=== PATIENT | male | born 1990 | race Caucasian/White ===

== ENCOUNTER 2017-01-28 22:17 | Emergency (ER) | payer SELFPAY ==
[2017-01-28] MEDS ORDERED: Lidocaine 1% 20 ML MDV INJECT ONE (22:37)
--- NOTE | 2017-01-28 22:38 | EDM.PDOC ---
ED HPI GENERAL MEDICAL PROBLEM - General Chief Complaint: Laceration Stated Complaint: PT HURT LT HAND Time Seen by Provider: 01/28/17 22:38 Source of Information: Reports: Patient - History of Present Illness INITIAL COMMENTS - FREE TEXT/NARRATIVE: HISTORY AND PHYSICAL: History of present illness: [Patient presents with laceration to left thumb, he was at work tonight using a "rosenda Rench "it spun back striking his thumb near the distal phalanx he has a 1.5 cm linear laceration otherwise neurovascularly intact unaffected above the wrist no fever nausea vomiting chills sweats no other injury per patient ] Review of systems: As per history of present illness and below otherwise all systems reviewed and negative. Past medical history: As per history of present illness and as reviewed below otherwise noncontributory. Surgical history: As per history of present illness and as reviewed below otherwise noncontributory. Social history: No reported history of drug or alcohol abuse. Family history: As per history of present illness and as reviewed below otherwise noncontributory. Physical exam: HEENT: Atraumatic, normocephalic, pupils reactive, negative for conjunctival pallor or scleral icterus, mucous membranes moist, throat clear, neck supple, nontender, trachea midline. Lungs: Clear to auscultation, breath sounds equal bilaterally, chest nontender. Heart: S1S2, regular, negative for clicks, rubs, or JVD. Abdomen: Soft, nondistended, nontender. Negative for masses or hepatosplenomegaly. Negative for costovertebral tenderness. Pelvis: Stable nontender. Genitourinary: Deferred. Rectal: Deferred. Extremities: Atraumatic, negative for cords or calf pain. Neurovascular unremarkable. Neuro: Awake, alert, oriented. Cranial nerves II through XII unremarkable. Cerebellum unremarkable. Motor and sensory unremarkable throughout. Exam nonfocal. Diagnostics: X-ray left thumb plain film Therapeutics: []Tetanus status up-to-date 3 years prior per patient Lidocaine Wound cleansed and explored Standard wound care instruction Bacitracin Telfa tube dressing Splint for comfort and protection Impression: []Laceration Definitive disposition and diagnosis as appropriate pending reevaluation and review of above. Left 1-Thumb Pain Score (Numeric/FACES): 2 - Related Data Allergies Allergy/AdvReac Type Severity Reaction Status Date / Time No Known Allergies Allergy Verified 01/28/17 22:27 Home Meds: Home Meds . [No Known Home Meds] 01/28/17 [History] Past Medical History - Past Health History Medical/Surgical History: Denies Medical/Surgical History - Infectious Disease History Infectious Disease History: Reports: Chicken Pox Social & Family History - Tobacco Use Smoking Status *Q: Never Smoker Second Hand Smoke Exposure: No - Caffeine Use Caffeine Use: Reports: Coffee, Energy Drinks, Tea - Recreational Drug Use Recreational Drug Use: Yes Drug Use in Last 12 Months: Yes Recreational Drug Type: Reports: Marijuana/Hashish, Other (see below) Other Recreational Drug Type: adderall Recreational Drug Use Frequency: Not Used In Over 6 Months ED ROS GENERAL - Review of Systems Review Of Systems: ROS reveals no pertinent complaints other than HPI. ED EXAM, SKIN/RASH Exam: See Below Course - Vital Signs Last Recorded V/S: Last Vital Signs Temp 97.8 F 01/28/17 22:23 Pulse 77 01/28/17 22:23 Resp 12 01/28/17 22:23 BP 92/58 L 01/28/17 22:23 Pulse Ox 98 01/28/17 22:23 - Orders/Labs/Meds Orders: Active Orders 24 hr Category Date Time Status Fingers Thumb Lt FA [CR] Stat Exams 01/28/17 22:55 Taken Meds: Medications Discontinued Medications Generic Name Dose Route Start Last Admin Trade Name Tuan PRN Reason Stop Dose Admin Lidocaine HCl 20 ml 01/28/17 22:37 01/28/17 22:42 Xylocaine 1% INJECT 01/28/17 22:38 20 ml ONETIME ONE Administration Departure - Departure Time of Disposition: 23:20 Disposition: Home, Self-Care 01 Condition: Good Clinical Impression: Laceration - Discharge Information Referrals: PCP,None [Primary Care Provider] - Forms: ED Department Discharge Additional Instructions: Standard wound care instructions Keep wound clean and dry for 48 hours Return if redness warmth or pus drainage should this develop Sutures out in 10 days Bacitracin Telfa tube dressing splint for comfort and protection Return to ER or primary care for suture removal, your employer may request that you follow-up with occupational health this would be acceptable as well The following information is given to patients seen in the emergency department who are being discharged to home. This information is to outline your options for follow-up care. We provide all patients seen in our emergency department with a follow-up referral. The need for follow-up, as well as the timing and circumstances, are variable depending upon the specifics of your emergency department visit. If you don't have a primary care physician on staff, we will provide you with a referral. We always advise you to contact your personal physician following an emergency department visit to inform them of the circumstance of the visit and for follow-up with them and/or the need for any referrals to a consulting specialist. The emergency department will also refer you to a specialist when appropriate. This referral assures that you have the opportunity for follow-up care with a specialist. All of these measure are taken in an effort to provide you with optimal care, which includes your follow-up. Under all circumstances we always encourage you to contact your private physician who remains a resource for coordinating your care. When calling for follow-up care, please make the office aware that this follow-up is from your recent emergency room visit. If for any reason you are refused follow-up, please contact the [facility] emergency department at and asked to speak to the emergency department charge nurse. - My Orders Last 24 Hours: My Active Orders 01/28/17 22:55 Fingers Thumb Lt FA [CR] Stat - Assessment/Plan Last 24 Hours: My Active Orders 01/28/17 22:55 Fingers Thumb Lt FA [CR] Stat
[2017-01-28] MEDS ORDERED: Bacitracin Oint 1 GM U/D Packet ONE (23:37)
--- NOTE | 2017-01-30 15:13 | CR ---
EXAM DATE: 01/28/17 PATIENT'S AGE: 26 Patient: CAITLIN LEVY Facility: [place], [place] Site . Site : 1990 Study: XRay Extremity Left Thumb [id number]/2/2017 11:12:26 PM Ordering Physician: Prince Steele Final Report: INDICATION: Thumb caught in wrench. Lateral laceration. TECHNIQUE: Left thumb, three views. COMPARISON: None FINDINGS: Bones: Alignment is normal. No acute fractures or aggressive bone lesions are identified. Joint spaces: The metacarpophalangeal and interphalangeal joints are normal in appearance. Soft tissues: Mild soft tissue dorsal margin of 1st IP joint. No radiopaque soft tissue foreign body. IMPRESSION: 1. Left thumb, no acute fracture or dislocation. Mild degree of IP joint soft tissue swelling. Dictated by Broderick Mendoza MD @ 01/28/2017 11:44:06 PM Dictated by: Broderick Mendoza MD @ 01/28/2017 23:44:10 (Electronic Signature) Report Signed by Proxy. [facility]
== END 2017-01-28 23:45 | disposition home or self-care (01) ==
LOC: MW.ED 22:17
DX: S61.012A Laceration without foreign body of left thumb without damage to nail, initial encounter (principal); W26.8XXA Contact with other sharp object(s), not elsewhere classified, initial encounter; Y99.0 Civilian activity done for income or pay
CPT/HCPCS: 73140-26-FA; 73140-FA; 99283

== ENCOUNTER 2017-02-14 20:19 | Emergency (ER) | payer SELFPAY | END 2017-02-14 20:33 | disposition left against medical advice (07) | LOC: MW.ED 20:19 | DX: Z53.21 Procedure and treatment not carried out due to patient leaving prior to being seen by health care provider (principal) | CPT/HCPCS: 99281 ==

== ENCOUNTER 2017-07-05 10:12 | Emergency (ER) | payer SELFPAY ==
--- NOTE | 2017-07-05 10:27 | EDM.PDOC ---
ED HPI GENERAL MEDICAL PROBLEM - General Chief Complaint: Abdominal Pain Stated Complaint: ABDOMINAL PAIN Time Seen by Provider: 07/05/17 10:27 - History of Present Illness INITIAL COMMENTS - FREE TEXT/NARRATIVE: HISTORY AND PHYSICAL: []26-year-old male presenting with right sided abdominal pain History of Present Illness: []Pain is described as a burning at this point a -07/06 Patient states the burning started about June he was seen in the clinic by Haylee Mar NP on the July 04, 2017. He was started on sulfate and Prilosec. Patient does chew tobacco. Review of Systems: As per history of present illness and below otherwise all systems reviewed and negative. Past medical history: As per history of present illness and as reviewed below otherwise noncontributory. Surgical history: As per history of present illness and as reviewed below otherwise noncontributory. Social history: No reported history of drug or alcohol abuse. Family history: As per history of present illness and as reviewed below otherwise noncontributory. Physical exam: HEENT: Atraumatic, normocehpalic, pupils reactive, negative for conjunctival pallor or scleral icterus, mucous membranes moist, throat clear, neck supple, nontender, trachea midline. Lungs: Clear to auscultation, breath sounds equal bilaterally, chest non tender. Heart: S1S2, regular, negative for clicks, rubs, or JVD. Abdomen: Soft, nondistended, nontender. Negative for masses or hepatossplenmegaly. Negative for costovertebral tenderness. Pelvis: Stable nontender. Genitourinary: Deferred. Rectal: Deferred Extremities: Atraumatic, negative for cords or calf pain. Neurovascular unremarkable. Neuro: Awake, alert, oriented. Cranial nerves II through XII unremarkable. Cerebellum unremarkable. Motor and sensory unremarkable throughout. Exam nonfocal. Discussed with the patient and significant other the negative tests that have been completed Patient received relief with the GI cocktail. Reviewed the lab work from 2 days ago. Recommended that patient follow up with local surgeon for possible EGD. To continue with his current medication Diagnostics: []EKG, ultrasound abdomen limited Therapeutics: []GI Cocktail. Impression: []Acute gastritis Plan: []Referred to Dr. Olson Continue with your current medications of Carafate and the second Definitive disposition and diagnosis as appropriate pending reevaluation and review of above. Duration: Week(s):, Getting Worse Location: Reports: Abdomen abdomen Pain Score (Numeric/FACES): 5 - Related Data Allergies Allergy/AdvReac Type Severity Reaction Status Date / Time No Known Allergies Allergy Verified 07/05/17 10:21 Home Meds: Home Meds Omeprazole Magnesium [Prilosec Otc] 40 mg PO DAILY 07/05/17 [History] Sucralfate [Carafate] 1 tab PO QID 07/05/17 [History] Past Medical History - Past Health History Medical/Surgical History: Denies Medical/Surgical History - Infectious Disease History Infectious Disease History: Reports: Chicken Pox Social & Family History - Family History Family Medical History: Noncontributory - Tobacco Use Smoking Status *Q: Never Smoker - Caffeine Use Caffeine Use: Reports: Coffee, Energy Drinks, Soda, Tea - Recreational Drug Use Recreational Drug Use: No ED ROS GENERAL - Review of Systems Review Of Systems: ROS reveals no pertinent complaints other than HPI. ED EXAM, GI/ABD - Physical Exam Exam: See Below (see dictation) EKG INTERPRETATION EKG Date: 07/05/17 Rhythm: NSR Comparison: NA - No Prior EKG Course - Vital Signs Last Recorded V/S: Last Vital Signs Temp 36.3 C 07/05/17 10:18 Pulse 63 07/05/17 10:18 Resp 18 07/05/17 10:18 BP 121/57 L 07/05/17 10:18 Pulse Ox 99 07/05/17 10:18 - Orders/Labs/Meds Orders: Active Orders 24 hr Category Date Time Status EKG Documentation Completion [RC] STAT Care 07/05/17 11:46 Active Fecal Occult Blood Collection [RC] ASDIRECTED Care 07/05/17 11:00 Active Meds: Medications Discontinued Medications Generic Name Dose Route Start Last Admin Trade Name Freq PRN Reason Stop Dose Admin Al Hydroxide/Mg Hydroxide 15 0 ml 07/05/17 10:30 07/05/17 10:50 ml/ Metoclopramide HCl 5 mg/ PO 07/05/17 10:31 1 each Lidocaine HCl 5 ml ONETIME ONE Administration Departure - Departure Time of Disposition: 12:32 Disposition: Home, Self-Care 01 Condition: Good Clinical Impression: Gastroenteritis Gastritis Qualifiers: Gastritis type: unspecified gastritis Chronicity: acute Gastritis bleeding: without bleeding Qualified Code(s): K29.00 - Acute gastritis without bleeding - Discharge Information Instructions: Gastritis, Adult, [id number] Referrals: PCP,None [Primary Care Provider] - Paris Olson MD [Physician] - Forms: ED Department Discharge Additional Instructions: The following information is given to patients seen in the emergency department who are being discharged to home. This information is to outline your options for follow-up care. We provide all patients seen in our emergency department with a follow-up referral. The need for follow-up, as well as the timing and circumstances, are variable depending upon the specifics of your emergency department visit. If you don't have a primary care physician on staff, we will provide you with a referral. We always advise you to contact your personal physician following an emergency department visit to inform them of the circumstance of the visit and for follow-up with them and/or the need for any referrals to a consulting specialist. The emergency department will also refer you to a specialist when appropriate. This referral assures that you have the opportunity for followup care with a specialist. All of these measure are taken in an effort to provide you with optimal care, which includes your followup. Under all circumstances we always encourage you to contact your private physician who remains a resource for coordinating your care. When calling for followup care, please make the office aware that this follow-up is from your recent emergency room visit. If for any reason you are refused follow-up, please contact the [facility] emergency department at and asked to speak to the emergency department charge nurse. Please call the clinic for an appointment with Dr. Paris Olson [facility] - [facility] Professional Building [address] [place] [address], [address] [place] [address] Continue with your current medications - My Orders Last 24 Hours: My Active Orders 07/05/17 11:00 Fecal Occult Blood Collection [RC] ASDIRECTED 07/05/17 11:46 EKG Documentation Completion [RC] STAT - Assessment/Plan Last 24 Hours: My Active Orders 07/05/17 11:00 Fecal Occult Blood Collection [RC] ASDIRECTED 07/05/17 11:46 EKG Documentation Completion [RC] STAT
[2017-07-05] MEDS ORDERED: Alum Hydrox/Mag Hydrox/Simeth 15 ML, Metoclopramide 5 MG, Lidocaine 2% 5 ML PO ONE ×3 (10:30)
--- NOTE | 2017-07-05 12:07 | US ---
EXAMINATION: Right upper quadrant ultrasound HISTORY: Pain COMPARISON: None TECHNIQUE: Grayscale and color Doppler images obtained of the right upper quadrant. FINDINGS: The visualized pancreas appears normal. The liver is normal in contour and echotexture with out a focal hepatic mass. Common bile duct measures 5 mm. The gallbladder wall thickness is normal. N o pericholecystic fluid or shadowing gallstones. The right kidney measures at least 13.3 cm pole-to-p ole without evidence of hydronephrosis. Negative sonographic Cheung's sign. IMPRESSION: Unremarkable right upper quadrant.
== END 2017-07-05 12:55 | disposition home or self-care (01) ==
LOC: MW.ED 10:12
DX: K29.00 Acute gastritis without bleeding (principal); K52.9 Noninfective gastroenteritis and colitis, unspecified; Z79.899 Other long term (current) drug therapy
CPT/HCPCS: 76705; 93005; 99284; A9270; 99282

== ENCOUNTER 2021-01-06 19:46 | Emergency (ER) | payer OTHER ==
--- NOTE | 2021-01-06 22:25 | CR ---
Indication: Injury from football. Technique: Left femur 4 views. Comparison: None. Findings: No acute fracture or dislocation. The hip and knee appear normally aligned. Joint spaces are well preserved. No knee joint effusion. Soft tissues are unremarkable. Impression: No acute findings. Dictated by Cinda Price MD @ 01/06/2021 10:24:15 PM (Electronically Signed)
[2021-01-06] MEDS ORDERED: Ketorolac 15 MG/ML SDV IM ONE (22:56)
[2021-01-06] MEDS ORDERED: Cyclobenzaprine 10 MG Tab PO ONE (22:57)
--- NOTE | 2021-01-06 23:01 | EDM.PDOC ---
ED HPI GENERAL MEDICAL PROBLEM - General Chief Complaint: Lower Extremity Injury/Pain Stated Complaint: LFT LEG INJURY Time Seen by Provider: 01/06/21 22:37 - History of Present Illness INITIAL COMMENTS - FREE TEXT/NARRATIVE: CHIEF COMPLAINT(S): Left thigh pain HISTORY OF PRESENT ILLNESS: This is a 30-year-old man without any significant past medical history who comes to the emergency department with a chief complaint of left thigh pain. The patient states that he was playing flag football when he turned and he felt a severe pain in his left thigh. He states that there is a swelling in that area. He states that there is no radiation of this pain. He currently describes it as throbbing and achy and worse with movement. He currently rates his pain as 5 out of 10. He denies any numbness, tingling, or weakness. He denies any hip pain, knee pain or ankle pain. There are no relieving factors. Pain is worsened by movement. REVIEW OF SYSTEMS: Constitutional: Denies fever, chills. Eyes: Denies eye pain Ears, Nose, Mouth, & Throat: Denies earache Cardiovascular: Denies chest pain Respiratory: Denies shortness of breath Gastrointestinal: Denies Nausea, vomiting, diarrhea, hematochezia. Genitourinary: Denies hematuria Skin:Denies a rash MSK: Positive for left thigh pain and swelling. Neurological: Denies blurred vision, numbness, tingling, weakness Psychiatric: Denies depression PAST MEDICAL HISTORY: As per history of present illness and as reviewed below otherwise noncontributory. SURGICAL HISTORY: As per history of present illness and as reviewed below otherwise noncontributory. SOCIAL HISTORY: As per history of present illness and as reviewed below otherwise noncontributory. FAMILY HISTORY: As per history of present illness and as reviewed below otherwise noncontributory. EXAMINATION OF ORGAN SYSTEMS/BODY AREAS: Constitutional: Blood pressure is 106/63, heart rate 79, respiratory rate 18 with an oxygen saturation 97% on room air. Temperature 36.0 General: Well-appearing man who is in no acute distress Psychiatric: Appropriate mood and affect. Eyes: No scleral icterus or conjunctival erythema Cardiovascular: Regular, rate, and rhythm. No gallops, murmurs, or rubs. Bilateral upper extremity and lower extremity pulses symmetric and intact. No peripheral edema. No JVD. Respiratory: Lungs clear to auscultation bilaterally. No wheezes, rales, or rhonchi. Musculoskeletal: The patient can fully flex and extend at the knee and at the hip. There is some swelling on the patient's left thigh. It appears that the quadricep tendon is intact. No other abnormality. Skin: No lesions or abrasions. Neurological: Alert, GCS 15 distal sensation is intact. MEDICAL DECISION MAKING AND COURSE IN THE ED WITH INTERPRETATION/REVIEW OF DIAGNOSTIC STUDIES: This is a 30-year-old man without any significant past medical history who comes in with left thigh pain after playing flag football who is quadricep tendon appears to be intact with full range of motion at the hip, knee, ankle. There is some swelling in this area and I do suspect a muscle injury versus strain however we will obtain a left thigh x-ray. We will provide the patient with Toradol for pain relief. DDx: Muscle hematoma, muscle strain, femur fracture The radiological images were viewed by myself along with reading the report from the radiologist. Left thigh x-ray does not reveal acute fracture or dislocation. After imaging I did discuss results with the patient. At this time I did discuss symptomatic treatment with the patient at home. He is to follow-up with orthopedics within 5 to 7 days for reevaluation. He was given strict return precautions. The patient was amenable to discharge and had no further questions DISPOSITION: The patient was discharged home in stable condition. The patient will follow up with orthopedics in 5 to 7 days CONDITION: Fair PROCEDURES: None FINAL IMPRESSION(S)/DIAGNOSES: 1. Acute left thigh strain Demond Tellez M.D. right upper leg Pain Score (Numeric/FACES): 5 - Related Data Allergies Allergy/AdvReac Type Severity Reaction Status Date / Time No Known Allergies Allergy Verified 01/06/21 20:44 Home Meds: Home Meds Acetaminophen [Tylenol Extra Strength] 1,000 mg PO Q6HR #56 tablet 01/06/21 [Rx] Ibuprofen 600 mg PO Q6HR #28 tablet 01/06/21 [Rx] methocarbamoL [Methocarbamol] 1,500 mg PO TID #42 tablet 01/06/21 [Rx] Past Medical History - Past Health History Medical/Surgical History: Denies Medical/Surgical History HEENT History: Reports: None Cardiovascular History: Reports: None Respiratory History: Reports: None Gastrointestinal History: Reports: Gastritis, GERD Genitourinary History: Reports: None Musculoskeletal History: Reports: Fracture Other Musculoskeletal History: hx of fx elbow, hand and both ankles Neurological History: Reports: None Psychiatric History: Reports: None Endocrine/Metabolic History: Reports: None Insulin Pump Model and Mess Attendant Crew: N/A Hematologic History: Reports: None Immunologic History: Reports: None Oncologic (Cancer) History: Reports: None Dermatologic History: Reports: None - Infectious Disease History Infectious Disease History: Reports: Chicken Pox - Past Surgical History Head Surgeries/Procedures: Reports: None HEENT Surgical History: Reports: Oral Surgery Social & Family History - Family History Family Medical History: No Pertinent Family History - Caffeine Use Caffeine Use: Reports: Coffee, Soda - Recreational Drug Use Recreational Drug Use: No Review of Systems - Review of Systems Review Of Systems: See Below ED EXAM, GENERAL - Physical Exam Exam: See Below Course - Vital Signs Last Recorded V/S: Last Vital Signs Temp 37.2 C 01/06/21 23:14 Pulse 77 01/06/21 23:14 Resp 16 01/06/21 23:14 BP 102/62 01/06/21 23:14 Pulse Ox 97 01/06/21 23:14 - Orders/Labs/Meds Meds: Medications Discontinued Medications Generic Name Dose Route Start Last Admin Trade Name Tuan PRN Reason Stop Dose Admin Cyclobenzaprine HCl 10 mg 01/06/21 22:57 01/06/21 23:12 Cyclobenzaprine 10 Mg Tab PO 01/06/21 22:58 10 mg ONETIME ONE Administration Ketorolac Tromethamine 15 mg 01/06/21 22:56 01/06/21 23:13 Ketorolac 15 Mg/Ml Sdv IM 01/06/21 22:57 Not Given ONETIME ONE Departure - Departure Time of Disposition: 22:57 Disposition: Home, Self-Care 01 Condition: Fair Clinical Impression: Muscle strain of left thigh - Discharge Information *PRESCRIPTION DRUG MONITORING PROGRAM REVIEWED*: No *COPY OF PRESCRIPTION DRUG MONITORING REPORT IN PATIENT LILIANE: No Prescriptions: Ibuprofen 600 mg PO Q6HR #28 tablet methocarbamoL [Methocarbamol] 1,500 mg PO TID #42 tablet Acetaminophen [Tylenol Extra Strength] 1,000 mg PO Q6HR #56 tablet Instructions: Quadriceps Strain Rehab-Sports[facility], Quadriceps Strain Referrals: PCP,None [Primary Care Provider] - Forms: ED Department Discharge Additional Instructions: You were evaluated today on an emergent basis. At this time the imaging was negative. Given that you are able to fully flex and extend your left lower extremity I do not believe there is any full tendon tears. At this time you may have a quadricep tendon/quadriceps strain. I recommend you use Tylenol, Motrin, Robaxin, rest, elevation and alternation with heat/ice. I recommend you follow- up with orthopedics within 5 to 7 days. If you have any worsening symptoms such as you are concerned that your pulse may not be apparent in your left lower ex tremity, numbness I would like you to return to the emergency department. Please use: Tylenol 500-1000mg every 6 hours (DO NOT TAKE MORE THAN 4000mg in 1 day) Ibuprofen 400mg every 6 hours (Take with food as it can cause ulcers, GI upset) Example schedule: 8:00 AM (Tylenol 500-1000mg) 11:00 AM (Ibuprofen 400mg) 2:00 PM (Tylenol 500-1000mg) 5:00 PM (Ibuprofen 400mg) In addition to Tylenol and Motrin you may use over the counter creams such as Voltaren Cream or Lidocaine Cream (Lidoderm) as needed 4 times a day for symptomatic relief. Ice the area 20 minutes 4 times per day [facility] [address], [address] [place] [address] The patient is informed of any results of their evaluation and diagnostic workup and all questions are answered. They are given discharge instructions and return precautions. The patient is stable for discharge. The patient states they understand and agree with the plan and that they will return if their symptoms get worse or if they have any new concerns. The following information is given to patients seen in the emergency department who are being discharged to home. This information is to outline your options for follow-up care. We provide all patients seen in our emergency department with a follow-up referral. The need for follow-up, as well as the timing and circumstances, are variable depending upon the specifics of your emergency department visit. If you don't have a primary care physician on staff, we will provide you with a referral. We always advise you to contact your personal physician following an emergency department visit to inform them of the circumstance of the visit and for follow-up with them and/or the need for any referrals to a consulting specialist. The emergency department will also refer you to a specialist when appropriate. This referral assures that you have the opportunity for follow-up care with a specialist. All of these measure are taken in an effort to provide you with optimal care, which includes your follow-up. Under all circumstances we always encourage you to contact your private ysician who remains a resource for coordinating your care. When calling for follow-up care, please make the office aware that this follow-up is from your recent emergency room visit. If for any reason you are refused follow-up, please contact the [facility] Emergency Department at and asked to speak to the emergency department charge nurse. Sepsis Event Note (ED) - Evaluation Sepsis Screening Result: No Definite Risk
== END 2021-01-06 23:22 | disposition home or self-care (01) ==
LOC: MW.ED 19:46
DX: S76.912A Strain of unspecified muscles, fascia and tendons at thigh level, left thigh, initial encounter (principal); X58.XXXA Exposure to other specified factors, initial encounter; Y93.62 Activity, american flag or touch football
CPT/HCPCS: 73552; 99283; A9270